=== PATIENT | female | born 1995 | race Caucasian/White ===

== ENCOUNTER 2021-03-23 23:14 | Emergency (ER) | payer OTHER ==
[~2021-03-23] VITALS: Ht 157.5 cm; Wt 54.4 kg
[2021-03-23] MEDS ORDERED: IBUPROFEN 600 MG (MOTRIN) TAB PO STA (23:39)
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
[2021-03-24] MEDS ORDERED: TRM50T PO (00:29)
[2021-03-24] MEDS ORDERED: IBUP-1780 PO (00:29)
[2021-03-24 00:45] VITALS: BP 131/70
--- NOTE | 2021-03-24 07:57 | Diagnostic Imaging Report ---
CLINICAL INDICATION: Patient with right elbow pain after falling off an electric skateboard. Patient has pain from elbow the tip of ring finger on right side. EXAMS: 1: X-ray of the right hand, 4 views. 2: X-ray of the right forearm, 2 views. 3: X-ray of the right elbow, 3 views. COMPARISON: None. FINDINGS: X-ray of the right hand, x-rays of the right forearm, and x-ray of the right elbow show no acute fracture or dislocation. There is no elbow effusion. There is no significant bone or joint abnormality. The right carpal bones are unremarkable and are intact. IMPRESSION: X-rays of the right hand, right forearm, and right elbow show no acute fracture or dislocation. Dictated by: Dictated on workstation # [id number]
== END 2021-03-24 00:45 | disposition home or self-care (01) ==
LOC: ER FS 23:15
DX: S50.01XA Contusion of right elbow, initial encounter (principal); M79.641 Pain in right hand; F17.210 Nicotine dependence, cigarettes, uncomplicated; V00.131A Fall from skateboard, initial encounter
CPT/HCPCS: 73080; 73090; 73130; 99283; A4565

== ENCOUNTER 2022-05-14 15:12 | Emergency (ER) | payer OTHER ==
[~2022-05-14] VITALS: Ht 154.9 cm; Wt 54.4 kg
[~2022-05-14 15:12] MED LIST: IBUP-1780 PO; TRM50T PO
[2022-05-14] MEDS ORDERED: fentaNYL INJ 100 MCG/2 ML AMP ONE (15:17)
[2022-05-14] MEDS ORDERED: HYDROmorphone 2 MG/ML VIAL (DILAUDID) ONE (15:23)
[2022-05-14] MEDS ORDERED: NS IV 1000 ML 1,000 ML IV SCH (15:30)
[2022-05-14] MEDS ORDERED: TETANUS,DIPTH,PERTUSS P/F (BOOSTRIX) 0.5 ML VIAL IM ONE (15:30)
[2022-05-14] MEDS ORDERED: ONDANSETRON 4 MG/2 ML (SDV) Z0FRAN IVP ONE (15:30)
[2022-05-14] MEDS ORDERED: fentaNYL INJ 100 MCG/2 ML AMP IVP ONE (15:30)
[2022-05-14] MEDS ORDERED: HYDROmorphone 2 MG/ML VIAL (DILAUDID) IV ONE ×2 (15:30→15:45)
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
[2022-05-14 15:32] LABS: HEMATOCRIT 38 % (35-52); HEMOGLOBIN 12.8 g/dL (11.5-16.0); MEAN CORPUSCULAR HEMOGLOBIN 30 pg (25-34); MEAN CORPUSCULAR HGB CONC 34 g/dL (32-36); MEAN CORPUSCULAR VOLUME 91 fL (80-99); MEAN PLATELET VOLUME 9.3 fL (9.0-12.2); PLATELET COUNT 468 10^3/uL (130-400); WHITE BLOOD COUNT 10.8 10^3/uL (4.3-11.0)
[2022-05-14 15:33] LABS: BASOPHILS % (AUTO) 1 % (0-10); EOSINOPHILS % (AUTO) 2 % (0-10); LYMPHOCYTES # (AUTO) 3.9 X 10^3 (1.0-4.0); LYMPHOCYTES % (AUTO) 36 % (12-44); MONOCYTES # (AUTO) 1.1 X 10^3 (0.0-1.0); MONOCYTES % (AUTO) 10 % (0-12); NEUTROPHILS # (AUTO) 5.5 X 10^3 (1.8-7.8); NEUTROPHILS % (AUTO) 51 % (42-75)
[2022-05-14 15:34] LABS: BASOPHILS # (AUTO) 0.1 10^3/uL (0.0-0.1); EOSINOPHILS # (AUTO) 0.3 10^3/uL (0.0-0.3)
--- NOTE | 2022-05-14 15:57 | Diagnostic Imaging Report ---
EXAM: FEMUR 2 VIEW LEFT INDICATION: Left lower extremity laceration. COMPARISON: None. FINDINGS: Soft tissue laceration in the popliteal fossa. No radiopaque foreign bodies. No fractures. IMPRESSION: No acute osseous findings in the left femur. Dictated by: Dictated on workstation # [id number]
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
[2022-05-14] MEDS ORDERED: ACHD5005 PO (17:06)
[2022-05-14] MEDS ORDERED: CEPH500T PO (17:06)
[2022-05-14] MEDS ORDERED: HYDROcodone/APAP 5 MG/325 MG (LORTAB) TAB PO ONE (17:15)
[2022-05-14 17:25] VITALS: BP 126/73
== END 2022-05-14 17:26 | disposition home or self-care (01) ==
LOC: EDUNIT# 15:12 → ER FS 15:13
DX: S81.812A Laceration without foreign body, left lower leg, initial encounter (principal); S71.132A Puncture wound without foreign body, left thigh, initial encounter; S80.811A Abrasion, right lower leg, initial encounter; F17.210 Nicotine dependence, cigarettes, uncomplicated; Z23 Encounter for immunization; Z28.310 Unvaccinated for COVID-19; V29.9XXA Motorcycle rider (driver) (passenger) injured in unspecified traffic accident, initial encounter
CPT/HCPCS: 36415; 73552; 73590; 84703; 85025; A6223; L1830; 90715

== ENCOUNTER 2022-05-26 14:22 | Emergency (ER) | payer OTHER ==
[~2022-05-26] VITALS: Ht 154.9 cm; Wt 54.4 kg
[~2022-05-26 14:22] MED LIST changes: +ACHD5005 PO; +CEPH500T PO
[2022-05-26 14:50] VITALS: BP 126/70
== END 2022-05-26 14:50 | disposition home or self-care (01) ==
LOC: EDUNIT# 14:22 → ER FS 14:23
DX: Z48.02 Encounter for removal of sutures (principal); Z28.310 Unvaccinated for COVID-19

== ENCOUNTER → 2023-05-04 | Outpatient (CLI) | payer OTHER | LOC: LABNPT 06:52 | PROVIDERS: ATTEND Family Medicine | DX: Z01.89 Encounter for other specified special examinations (principal); B95.1 Streptococcus, group B, as the cause of diseases classified elsewhere | CPT/HCPCS: 87081 ==

== ENCOUNTER 2023-05-29 05:59 | Inpatient (IN) | payer OTHER, MEDICAID ==
[~2023-05-29] VITALS: Ht 154.9 cm; Wt 62.8 kg
[2023-05-29] VITALS (78 sets, daily range): BP systolic 63–126; BP diastolic 32–75
[2023-05-29 06:57] LABS: BASOPHILS % (AUTO) 0 % (0-10); EOSINOPHILS # (AUTO) 0.6 10^3/uL (0.0-0.3); EOSINOPHILS % (AUTO) 5 % (0-10); HEMATOCRIT 38 % (35-52); HEMOGLOBIN 13.2 g/dL (11.5-16.0); LYMPHOCYTES # (AUTO) 3.3 10^3/uL (1.0-4.0); LYMPHOCYTES % (AUTO) 29 % (12-44); MEAN CORPUSCULAR HEMOGLOBIN 31 pg (25-34); MEAN CORPUSCULAR HGB CONC 35 g/dL (32-36); MEAN CORPUSCULAR VOLUME 90 fL (80-99); MEAN PLATELET VOLUME 10.5 fL (9.0-12.2); MONOCYTES # (AUTO) 1.1 10^3/uL (0.0-1.0); MONOCYTES % (AUTO) 10 % (0-12); NEUTROPHILS # (AUTO) 6.2 10^3/uL (1.8-7.8); NEUTROPHILS % (AUTO) 55 % (42-75); PLATELET COUNT 360 10^3/uL (130-400); WHITE BLOOD COUNT 11.4 10^3/uL (4.3-11.0)
[2023-05-29] MEDS: D5 LR IV SOLUTION 1,000 ML IV SCH ×2 (07:14→14:35)
[2023-05-29] MEDS ORDERED: PREN-37 PO (07:23)
[2023-05-29] MEDS ORDERED: OXYTOCIN PRE-MIX DRIP 500 ML IV SCH ×3 (08:00→18:30)
[2023-05-29] MEDS ORDERED: fentaNYL 2 mcg/ml BUPIVA 0.125 100 ML ONE (08:04)
[2023-05-29] MEDS ORDERED: LACTATED RINGERS 1,000 ML IV ONE ×2 (08:05→08:30)
--- NOTE | 2023-05-29 08:08 | History & Physical-OB ---
OB - Chief Complaint & HPI Date/Time Date of Admission: Date of Admission: May 29, 2023 at 05:59 Date seen by a Provider: May 29, 2023 Time Seen by a Provider: 07:45 Chief Complaint/History OB-Reason for Admission/Chief: Induction of Labor Hx : 1 Hx Para: 0 Expected Date of Delivery: May 30, 2023 Gestational Age in Weeks: 39 Gestational Age in Days: 6 Admission Nurse Assessment Rev: Yes History of Labs O pos Antibody neg RI RPR NR HBsAg NR HIV NR GC neg GBS neg Allergies and Home Medications Allergies Coded Allergies: No Known Drug Allergies (Unverified , 03/23/21) Patient Home Medication List Home Medication List Reviewed: Yes Vit/Iron Fumarate/FA ( Tablet) 27 Mg Iron-800 Mcg Tablet, 1 EACH PO DAILY, (Reported) Entered as Reported by: MARC BIRMINGHAM on 05/29/23722 Last Action: New Order Discontinued Medications Cephalexin (Cephalexin) 500 Mg Tablet, 500 MG PO TID Discontinued Reason: No Longer Taking Prescribed by: TERRI TOMPKINS on 05/14/221705 Last Action: Discontinued Hydrocodone/Acetaminophen (Hydrocodone-Acetamin 5-325 mg) 5 Mg-325 Mg Tablet, 1 TAB PO Q6H PRN for PAIN-MODERATE (5-7) Discontinued Reason: No Longer Taking Prescribed by: TERRI TOMPKINS on 05/14/221705 Last Action: Discontinued Ibuprofen (Ibuprofen) 800 Mg Tablet, 800 MG PO Q8H PRN for PAIN Discontinued Reason: No Longer Taking Prescribed by: LORE HAMM on 03/24/21 0029 Last Action: Discontinued Tramadol HCl (Tramadol HCl) 50 Mg Tablet, 50 MG PO Q6H PRN for PAIN Discontinued Reason: No Longer Taking Prescribed by: LORE Liu ENYART on 03/24/21 0030 Last Action: Discontinued Tramadol HCl (Tramadol HCl) 50 Mg Tablet, 50 MG PO Q6H PRN for PAIN Discontinued Reason: No Longer Taking Prescribed by: JOSEPH TERRY on 05/21/221711 Last Action: Discontinued OB - History Hx of Present Care: Yes Ultrasounds: Normal mid trimester US Obstetrical Complications: None Medical Complications: None Patient Past Medical History nc Social History/Family History 2nd Hand Smoke Exposure: Yes Immunizations First/Initial COVID19 Vaccine: Not currently vaccinated OB - Admission Exam Physical Exam Vitals: Vital Signs 05/29/23 07:16 Temp 36.5 Pulse 81 Resp 18 Pulse Ox 100 O2 Delivery Room Air HEENT: NCAT Heart: Rhythm Normal Lungs: Clear Abdomen: Gravid Extremities: Normal Reflexes: Normal Cervical Dilatation: 2cm Effacement: 75% Station: -1 Membranes: Intact Heart Rate: 130's Accelerations: Accelerations Present Decelerations: No Decelerations Short Term Variability: Present Senior Care Variability: Average (6-25) Contractions on Admission: 6-10 Minutes Apart Intensity: Mild English Scoring Tool (Modified) Dilation (cm): 1-2cm (1) Effacement (%): 51-79% (2) Descent/Station: -1,0 (2) Cervix Consistency: Soft (2) Cervix Position: Anterior (2) Subtract 1 point for: Nulliparity (-1) English Score: 8 Labs Laboratory Tests Test 05/29/23 06:53 Range/Units White Blood Count 11.4 H 4.3-11.0 10^3/uL Red Blood Count 4.26 3.80-5.11 10^6/uL Hemoglobin 13.2 11.5-16.0 g/dL Hematocrit 38 35-52 % Mean Corpuscular Volume 90 80-99 fL Mean Corpuscular Hemoglobin 31 25-34 pg Mean Corpuscular Hemoglobin Concent 35 32-36 g/dL Red Cell Distribution Width 12.9 10.0-14.5 % Platelet Count 360 130-400 10^3/uL Mean Platelet Volume 10.5 9.0-12.2 fL Immature Granulocyte % (Auto) 1 % Neutrophils (%) (Auto) 55 42-75 % Lymphocytes (%) (Auto) 29 12-44 % Monocytes (%) (Auto) 10 0-12 % Eosinophils (%) (Auto) 5 0-10 % Basophils (%) (Auto) 0 0-10 % Neutrophils # (Auto) 6.2 1.8-7.8 10^3/uL Lymphocytes # (Auto) 3.3 1.0-4.0 10^3/uL Monocytes # (Auto) 1.1 H 0.0-1.0 10^3/uL Eosinophils # (Auto) 0.6 H 0.0-0.3 10^3/uL Basophils # (Auto) 0.0 0.0-0.1 10^3/uL Immature Granulocyte # (Auto) 0.1 0.0-0.1 10^3/uL Syphilis Total Antibody Negative Negative OB - Assessment/Plan/Diagnosis Assessment Assessment: induction of labor Admission Dx 27 yo @ 39.6 GBS neg Admission Status: Inpatient Order (span 2 midnights) Reason for Inpatient Admission: IOL at 39 weeks Plan Plan: Induction Induction Method: DONNA BELL DO May 29, 2023 08:07
[2023-05-29] MEDS ORDERED: diphenhydrAMINE 50 MG/ML INJ (BENADRYL) IV PRN (08:30)
[2023-05-29] MEDS ORDERED: NALOXONE 0.4 MG/ML 1 ML (NARCAN) VIAL IV PRN ×2 (08:30→18:30)
[2023-05-29] MEDS ORDERED: ONDANSETRON 4 MG/2 ML (SDV) Z0FRAN IV PRN (08:30)
[2023-05-29] MEDS ORDERED: CATHETER FLUSH 10 ML SYR IV PRN (08:30)
[2023-05-29] MEDS ORDERED: BUPIVACAINE 0.25% 10 ML (SENSORCAINE) VIAL ONE (08:35)
[2023-05-29] MEDS ORDERED: fentaNYL INJ 100 MCG/2 ML AMP ONE (08:35)
[2023-05-29] MEDS: fentaNYL 2 mcg/ml BUPIVA 0.125 100 ML EPI SCH ×2 (08:58→17:25)
[2023-05-29] MEDS: CATHETER FLUSH 10 ML SYR IV SCH ×2 (14:00→22:00)
[2023-05-29] MEDS ORDERED: LIDOCAINE/EPI 2% 1:200,00 (XYLOCAINE) 20 ML VIAL INJ PRN (16:00)
[2023-05-29] MEDS ORDERED: BENZOCAINE/MENTHOL (DERMOPLAST) 56 ML CAN TP PRN (18:30)
[2023-05-29] MEDS ORDERED: DIBUCAINE 1% OINTMENT 28 GM TUBE TOP PRN (18:30)
[2023-05-29] MEDS ORDERED: WITCH HAZEL(TUCKS) 40 EA JAR TOP PRN (18:30)
[2023-05-29] MEDS ORDERED: MEASLES,MUMPS,RUBELLA 1 EA INJ SQ ONE (18:30)
[2023-05-29] MEDS ORDERED: TETANUS,DIPTH,PERTUSS P/F (BOOSTRIX) 0.5 ML VIAL IM ONE (18:30)
--- NOTE | 2023-05-29 18:36 | OB Labor & Delivery Record ---
Vag Delivery Note Vag Delivery Note Date of Delivery: 05/29/23 Preoperative Diagnosis: Michelle Garcia is a (27 /Para 1 / 0,Gestational Age (wks)39with [ ] Postoperative Diagnosis: Same Surgeon: LUIS MIGUEL CORONEL Porcelain [place]axer: [] Anesthesia: epidural Delivery Type: Spontaneous vaginal delivery Findings: [] Liveborn male infant, apgars 9/9, weight 2810g (6#3oz) Lacerations: First-degree perineal, left vaginal wall Intact placenta with 3 vessel cord. No nuchal cord, body cord or shoulder d ystocia Estimated Blood Loss: 200 ml Complications: None Condition: Stable Description of Procedure: The patient is a 27 year old female who presented at 39 weeks for induction of labor. She was admitted and informed consent was obtained. Her labor course was Noneventful. She progressed to complete dilatation and began to push. Patient was complete and pushed for approximately 10 minutes to deliver the head in an TIFFANI position. The anterior shoulder (left) delivered followed by the posterior shoulder and the rest the . The was placed on the maternal abdomen and after 60 seconds of delayed cord clamping the cord was clamped and then cut. The placenta delivered spontaneously intact with three-vessel cord. The cervix, vagina, periurethral and perineal areas were all inspected. There was a first-degree perineal laceration and a left vaginal wall laceration which was repaired in usual fashion using 3-0 repeat.The uterus was massaged and was noted to be firm. The quantitative blood loss was 200 cc. The mother and tolerated the procedure well and a recovering in the room in stable condition. All my counts were correct x2. Vitals - Labs Vital Signs - I&O Vital Signs Date Time Temp Pulse Resp B/P (MAP) Pulse Ox O2 Delivery O2 Flow Rate FiO2 05/29/23 17:25 36.0 05/29/23 17:07 80 111/56 (74) 100 Room Air 05/29/23 17:02 87 98 Room Air 05/29/23 16:57 89 98 Room Air 05/29/23 16:52 90 112/54 (73) 100 Room Air 05/29/23 16:47 82 98 Room Air 05/29/23 16:42 75 100 Room Air 05/29/23 16:37 70 110/59 (76) 100 Room Air 05/29/23 16:32 82 100 Room Air 05/29/23 16:27 71 100 Room Air 05/29/23 16:22 65 106/59 (75) 99 Room Air 05/29/23 16:17 67 100 Room Air 05/29/23 16:12 71 99 Room Air 05/29/23 16:07 72 112/57 (75) 98 Room Air 05/29/23 16:02 73 99 Room Air 05/29/23 15:57 64 100 Room Air 05/29/23 15:52 73 106/57 (73) 99 Room Air 05/29/23 15:47 72 100 Room Air 05/29/23 15:42 75 98 Room Air 05/29/23 15:37 69 109/62 (78) 100 Room Air 05/29/23 15:32 72 99 Room Air 05/29/23 15:27 68 100 Room Air 05/29/23 15:22 69 102/56 (71) 99 Room Air 05/29/23 15:17 66 100 Room Air 05/29/23 15:12 64 98 Room Air 05/29/23 15:07 81 96/58 (71) 100 Room Air 05/29/23 15:02 70 100 Room Air 05/29/23 14:57 68 98 Room Air 05/29/23 14:52 73 98/61 (73) 100 Room Air 05/29/23 14:47 73 100 Room Air 05/29/23 14:42 61 100 Room Air 05/29/23 14:37 83 107/58 (74) 98 Room Air 05/29/23 14:32 72 98 Room Air 05/29/23 14:27 82 100 Room Air 05/29/23 14:22 88 99/57 (71) 100 Room Air 05/29/23 14:17 80 100 Room Air 05/29/23 14:12 83 100 Room Air 05/29/23 14:07 84 96/58 (71) 100 Room Air 05/29/23 14:02 88 100 Room Air 05/29/23 13:57 82 100 Room Air 05/29/23 13:52 81 99 Room Air 05/29/23 13:47 75 100 Room Air 05/29/23 13:42 85 100 Room Air 05/29/23 13:37 76 97/55 (69) 100 Room Air 05/29/23 13:32 69 99 Room Air 7/19/23 13:27 70 99 Room Air 05/29/23 13:22 76 96/55 (69) 100 Room Air 05/29/23 13:17 81 100 Room Air 05/29/23 13:12 80 100 Room Air 05/29/23 13:07 85 91/52 (65) 100 Room Air 05/29/23 13:02 69 98 Room Air 05/29/23 12:57 90 99 Room Air 05/29/23 12:52 88 97/55 (69) 100 Room Air 05/29/23 12:47 89 100 Room Air 05/29/23 12:42 78 100 Room Air 05/29/23 12:37 81 101/50 (67) 100 Room Air 05/29/23 12:32 83 100 Room Air 05/29/23 12:27 78 100 Room Air 05/29/23 12:22 70 110/59 (76) 100 Room Air 05/29/23 12:17 82 100 Room Air 05/29/23 12:12 82 100 Room Air 05/29/23 12:07 82 100/49 (66) 100 Room Air 05/29/23 12:02 71 100 Room Air 05/29/23 11:57 69 98 Room Air 05/29/23 11:52 69 106/61 (76) 99 Room Air 05/29/23 11:47 83 100 Room Air 05/29/23 11:42 89 100 Room Air 05/29/23 11:37 72 108/59 (75) 99 Room Air 05/29/23 11:32 64 100 Room Air 05/29/23 11:27 79 100 Room Air 05/29/23 11:22 66 115/59 (77) 100 Room Air 05/29/23 11:17 81 100 Room Air 05/29/23 11:12 78 100 Room Air 05/29/23 11:07 89 89/51 (64) 100 Room Air 05/29/23 11:02 83 100 Room Air 05/29/23 10:57 98 100 Room Air 05/29/23 10:50 75 116/58 (77) 100 Room Air 05/29/23 10:47 90 105/58 (74) 100 Room Air 05/29/23 10:44 92 102/50 (67) 05/29/23 10:41 83 112/55 (74) 100 Room Air 05/29/23 10:38 79 106/57 (73) 100 Room Air 05/29/23 10:35 90 99/48 (65) 94 Room Air 05/29/23 10:32 85 118/53 (74) 100 Room Air 05/29/23 10:29 85 112/58 (76) 05/29/23 10:26 91 114/56 (75) 100 Room Air 05/29/23 10:23 90 110/56 (74) 100 Room Air 05/29/23 10:20 73 118/59 (78) 05/29/23 10:17 83 120/58 (78) 100 Room Air 05/29/23 10:14 82 100/55 (70) 05/29/23 10:11 73 122/64 (83) 100 Room Air 05/29/23 10:08 65 117/72 (87) 100 Room Air 05/29/23 10:05 89 112/66 (81) 05/29/23 10:02 105 116/63 (80) 100 Room Air 05/29/23 09:59 89 110/55 (73) 05/29/23 09:56 68 122/64 (83) 100 Room Air 05/29/23 09:53 86 122/58 (79) 99 Room Air 05/29/23 09:50 107 119/56 (77) 05/29/23 09:47 100 107/52 (70) 100 Room Air 05/29/23 09:44 103 103/75 (84) 05/29/23 09:41 96 98/57 (71) 97 Room Air 05/29/23 09:38 95 96/52 (67) 100 Room Air 05/29/23 09:35 72 80/46 (57) 05/29/23 09:32 68 90/54 (66) 97 Room Air 05/29/23 09:29 68 73/43 (53) 05/29/23 09:26 74 63/33 (43) 99 Room Air 05/29/23 09:23 90 98/63 (75) 100 Room Air 05/29/23 09:20 100 69/32 (44) 05/29/23 09:17 100 112/52 (72) 99 Room Air 05/29/23 09:12 72 99 Room Air 05/29/23 09:09 65 100 Room Air 05/29/23 09:08 70 112/60 (77) 98 Room Air 05/29/23 09:06 90 88/45 (59) 05/29/23 09:03 96 101/59 (73) 100 Room Air 05/29/23 08:56 106 104/55 (71) 05/29/23 08:53 95 107/58 (74) 05/29/23 08:50 95 111/62 (78) 100 Room Air 05/29/23 08:47 85 126/70 (88) 100 Room Air 05/29/23 08:44 85 108/58 (75) 05/29/23 08:41 85 99 Room Air 05/29/23 08:36 76 97 Room Air 05/29/23 08:31 75 98 Room Air 05/29/23 08:26 70 100 Room Air 05/29/23 08:21 75 100 Room Air 05/29/23 08:16 65 100 Room Air 05/29/23 08:11 69 100 Room Air 05/29/23 08:06 74 100 Room Air 05/29/23 08:01 89 100 Room Air 05/29/23 07:56 90 100 Room Air 05/29/23 07:51 100 Room Air 05/29/23 07:46 75 100 Room Air 05/29/23 07:41 72 99 Room Air 05/29/23 07:36 68 99 Room Air 05/29/23 07:31 69 100 Room Air 05/29/23 07:26 72 100 Room Air 05/29/23 07:21 83 100 Room Air 05/29/23 07:18 75 102/55 (71) 05/29/23 07:16 76 100 Room Air 05/29/23 07:16 36.5 81 18 100 Room Air 05/29/23 07:11 61 100 Room Air 05/29/23 07:06 72 100 Non Rebreather 05/29/23 07:01 80 100 Non Rebreather 05/29/23 06:56 77 100 Non Rebreather 05/29/23 06:51 79 100 Non Rebreather 05/29/23 06:46 79 100 Non Rebreather 05/29/23 06:41 64 98 Non Rebreather 05/29/23 06:20 122 98 Non Rebreather 05/29/23 06:20 36.7 123 20 98 Room Air Labs Laboratory Tests 05/29/23 06:53: White Blood Count 11.4H, Red Blood Count 4.26, Hemoglobin 13.2, Hematocrit 38, Mean Corpuscular Volume 90, Mean Corpuscular Hemoglobin 31, Mean Corpuscular Hemoglobin Concent 35, Red Cell Distribution Width 12.9, Platelet Count 360, Mean Platelet Volume 10.5, Immature Granulocyte % (Auto) 1, Neutrophils (%) (Auto) 55, Lymphocytes (%) (Auto) 29, Monocytes (%) (Auto) 10, Eosinophils (%) (Auto) 5, Basophils (%) (Auto) 0, Neutrophils # (Auto) 6.2, Lymphocytes # (Auto) 3.3, Monocytes # (Auto) 1.1H, Eosinophils # (Auto) 0.6H, Basophils # (Auto) 0.0, Immature Granulocyte # (Auto) 0.1, Syphilis Total Antibody Negative LUIS MIGUEL CORONEL DO May 29, 2023 18:36
[2023-05-29] MEDS ORDERED: DOCU-143 PO (18:39)
[2023-05-29] MEDS ORDERED: IBUP-1773 PO (18:39)
[2023-05-29] MEDS: ACETAMINOPHEN 500 MG TAB (TYLENOL) PO SCH (19:14)
[2023-05-29] MEDS: IBUPROFEN 800 MG (MOTRIN) TAB PO SCH (19:14)
[2023-05-29] MEDS ORDERED: CATHETER FLUSH 10 ML SYR IV SCH (22:00)
[2023-05-30 01:30] VITALS: BP 93/55
[2023-05-30] MEDS: ACETAMINOPHEN 500 MG TAB (TYLENOL) PO SCH ×3 (01:33→14:30)
[2023-05-30] MEDS: DOCUSATE SODIUM 100 MG (COLACE) CAP PO SCH ×2 (01:46→08:11)
[2023-05-30] MEDS: D5 LR IV SOLUTION 1,000 ML IV SCH (01:54)
[2023-05-30 04:27] VITALS: BP 97/59
[2023-05-30] MEDS: IBUPROFEN 800 MG (MOTRIN) TAB PO SCH ×2 (04:27→13:11)
[2023-05-30 05:48] LABS: BASOPHILS % (AUTO) 0 % (0-10); EOSINOPHILS # (AUTO) 0.3 10^3/uL (0.0-0.3); EOSINOPHILS % (AUTO) 3 % (0-10); HEMATOCRIT 34 % (35-52); HEMOGLOBIN 11.8 g/dL (11.5-16.0); LYMPHOCYTES % (AUTO) 18 % (12-44); MEAN CORPUSCULAR HEMOGLOBIN 31 pg (25-34); MEAN CORPUSCULAR HGB CONC 35 g/dL (32-36); MEAN CORPUSCULAR VOLUME 90 fL (80-99); MEAN PLATELET VOLUME 10.7 fL (9.0-12.2); MONOCYTES # (AUTO) 0.9 10^3/uL (0.0-1.0); MONOCYTES % (AUTO) 8 % (0-12); NEUTROPHILS # (AUTO) 7.7 10^3/uL (1.8-7.8); NEUTROPHILS % (AUTO) 70 % (42-75); PLATELET COUNT 245 10^3/uL (130-400); WHITE BLOOD COUNT 11.1 10^3/uL (4.3-11.0)
[2023-05-30] MEDS ORDERED: PRENATAL VITAMIN 1 EA TAB PO SCH (07:00)
--- NOTE | 2023-05-30 07:21 | Postpartum Progress Note ---
Note Note Day # 1 Subjective: Patient is without complaints. Ambulating, voiding. Tolerating a regular diet without nausea or vomiting. Normal lochia. Pain is well controlled with oral pain medications. Objective: Physical Exam: General - Alert and oriented, no apparent distress Abdomen - Soft, appropriately tender to palpation, non-distended, fundus firm at umbilicus Extremities - no edema, negative [place]'s bilaterally Assessment: PPD 1 NVD Plan: Routine care. Encourage breast feeding. Encourage ambulation. Ferrous sulfate supplementation. Plan for discharge tomorrow Vitals - Labs Vital Signs - I&O Vital Signs Date Time Temp Pulse Resp B/P (MAP) Pulse Ox O2 Delivery O2 Flow Rate FiO2 05/30/23 04:27 36.6 77 18 97/59 (72) 99 Room Air 05/30/23 01:30 36.5 81 18 93/55 (68) 97 Room Air 05/29/23 21:30 36.7 70 18 99/54 (69) Room Air 05/29/23 20:36 81 18 105/57 (73) Room Air 05/29/23 20:21 36.5 72 18 96/55 (69) Room Air 05/29/23 20:06 75 18 91/51 (64) Room Air 05/29/23 19:51 36.6 79 18 88/51 (63) Room Air 05/29/23 19:36 76 105/57 (73) 05/29/23 19:21 77 107/54 (71) 05/29/23 19:14 36.0 05/29/23 19:14 36.0 05/29/23 18:55 83 92 Room Air 05/29/23 18:54 82 98 Room Air 05/29/23 18:49 75 100 Room Air 05/29/23 18:44 80 99 Room Air 05/29/23 18:43 96 88 Room Air 05/29/23 18:38 107 100 Room Air 05/29/23 18:34 76 117/56 (76) 05/29/23 18:33 36.0 71 100 Room Air 05/29/23 18:04 125 100 Room Air 05/29/23 18:02 101 97 Room Air 05/29/23 17:57 74 100 Room Air 05/29/23 17:52 82 110/72 (85) 100 Room Air 05/29/23 17:47 75 91 Room Air 05/29/23 17:42 82 99 Room Air 05/29/23 17:37 74 113/66 (82) 91 Room Air 05/29/23 17:32 83 99 Room Air 05/29/23 17:27 36.0 70 18 100 Room Air 05/29/23 17:25 36.0 05/29/23 17:22 77 115/70 (85) 100 Room Air 05/29/23 17:17 69 100 Room Air 05/29/23 17:12 82 100 Room Air 05/29/23 17:07 80 111/56 (74) 100 Room Air 05/29/23 17:02 87 98 Room Air 05/29/23 16:57 89 98 Room Air 05/29/23 16:52 90 112/54 (73) 100 Room Air 05/29/23 16:47 82 98 Room Air 05/29/23 16:42 75 100 Room Air 05/29/23 16:37 70 110/59 (76) 100 Room Air 05/29/23 16:32 82 100 Room Air 05/29/23 16:27 71 100 Room Air 05/29/23 16:22 65 106/59 (75) 99 Room Air 05/29/23 16:17 67 100 Room Air 05/29/23 16:12 71 99 Room Air 05/29/23 16:07 72 112/57 (75) 98 Room Air 05/29/23 16:02 73 99 Room Air 05/29/23 15:57 64 100 Room Air 05/29/23 15:52 73 106/57 (73) 99 Room Air 05/29/23 15:47 72 100 Room Air 05/29/23 15:42 75 98 Room Air 05/29/23 15:37 69 109/62 (78) 100 Room Air 05/29/23 15:32 72 99 Room Air 05/29/23 15:27 68 100 Room Air 05/29/23 15:22 69 102/56 (71) 99 Room Air 05/29/23 15:17 66 100 Room Air 05/29/23 15:12 64 98 Room Air 05/29/23 15:07 81 96/58 (71) 100 Room Air 05/29/23 15:02 70 100 Room Air 05/29/23 14:57 68 98 Room Air 05/29/23 14:52 73 98/61 (73) 100 Room Air 05/29/23 14:47 73 100 Room Air 05/29/23 14:42 61 100 Room Air 05/29/23 14:37 83 107/58 (74) 98 Room Air 05/29/23 14:32 72 98 Room Air 05/29/23 14:27 82 100 Room Air 05/29/23 14:22 88 99/57 (71) 100 Room Air 05/29/23 14:17 80 100 Room Air 05/29/23 14:12 83 100 Room Air 05/29/23 14:07 84 96/58 (71) 100 Room Air 05/29/23 14:02 88 100 Room Air 05/29/23 13:57 82 100 Room Air 05/29/23 13:52 81 99 Room Air 05/29/23 13:47 75 100 Room Air 05/29/23 13:42 85 100 Room Air 05/29/23 13:37 76 97/55 (69) 100 Room Air 05/29/23 13:32 69 99 Room Air 05/29/23 13:27 70 99 Room Air 05/29/23 13:22 76 96/55 (69) 100 Room Air 05/29/23 13:17 81 100 Room Air 05/29/23 13:12 80 100 Room Air 05/29/23 13:07 85 91/52 (65) 100 Room Air 05/29/23 13:02 69 98 Room Air 05/29/23 12:57 90 99 Room Air 05/29/23 12:52 88 97/55 (69) 100 Room Air 05/29/23 12:47 89 100 Room Air 05/29/23 12:42 78 100 Room Air 05/29/23 12:37 81 101/50 (67) 100 Room Air 05/29/23 12:32 83 100 Room Air 05/29/23 12:27 78 100 Room Air 05/29/23 12:22 70 110/59 (76) 100 Room Air 05/29/23 12:17 82 100 Room Air 05/29/23 12:12 82 100 Room Air 05/29/23 12:07 82 100/49 (66) 100 Room Air 05/29/23 12:02 71 100 Room Air 05/29/23 11:57 69 98 Room Air 05/29/23 11:52 69 106/61 (76) 99 Room Air 05/29/23 11:47 83 100 Room Air 05/29/23 11:42 89 100 Room Air 05/29/23 11:37 72 108/59 (75) 99 Room Air 05/29/23 11:32 64 100 Room Air 05/29/23 11:27 79 100 Room Air 05/29/23 11:22 66 115/59 (77) 100 Room Air 05/29/23 11:17 81 100 Room Air 05/29/23 11:12 78 100 Room Air 05/29/23 11:07 89 89/51 (64) 100 Room Air 05/29/23 11:02 83 100 Room Air 05/29/23 10:57 98 100 Room Air 05/29/23 10:50 75 116/58 (77) 100 Room Air 05/29/23 10:47 90 105/58 (74) 100 Room Air 05/29/23 10:44 92 102/50 (67) 05/29/23 10:41 83 112/55 (74) 100 Room Air 05/29/23 10:38 79 106/57 (73) 100 Room Air 05/29/23 10:35 90 99/48 (65) 94 Room Air 05/29/23 10:32 85 118/53 (74) 100 Room Air 05/29/23 10:29 85 112/58 (76) 05/29/23 10:26 91 114/56 (75) 100 Room Air 05/29/23 10:23 90 110/56 (74) 100 Room Air 05/29/23 10:20 73 118/59 (78) 05/29/23 10:17 83 120/58 (78) 100 Room Air 05/29/23 10:14 82 100/55 (70) 05/29/23 10:11 73 122/64 (83) 100 Room Air 05/29/23 10:08 65 117/72 (87) 100 Room Air 05/29/23 10:05 89 112/66 (81) 05/29/23 10:02 105 116/63 (80) 100 Room Air 05/29/23 09:59 89 110/55 (73) 05/29/23 09:56 68 122/64 (83) 100 Room Air 05/29/23 09:53 86 122/58 (79) 99 Room Air 05/29/23 09:50 107 119/56 (77) 05/29/23 09:47 100 107/52 (70) 100 Room Air 05/29/23 09:44 103 103/75 (84) 05/29/23 09:41 96 98/57 (71) 97 Room Air 05/29/23 09:38 95 96/52 (67) 100 Room Air 05/29/23 09:35 72 80/46 (57) 05/29/23 09:32 68 90/54 (66) 97 Room Air 05/29/23 09:29 68 73/43 (53) 05/29/23 09:26 74 63/33 (43) 99 Room Air 05/29/23 09:23 90 98/63 (75) 100 Room Air 05/29/23 09:20 100 69/32 (44) 05/29/23 09:17 100 112/52 (72) 99 Room Air 05/29/23 09:12 72 99 Room Air 05/29/23 09:09 65 100 Room Air 05/29/23 09:08 70 112/60 (77) 98 Room Air 05/29/23 09:06 90 88/45 (59) 05/29/23 09:03 96 101/59 (73) 100 Room Air 05/29/23 08:58 36.0 05/29/23 08:56 106 104/55 (71) 05/29/23 08:53 95 107/58 (74) 05/29/23 08:50 95 111/62 (78) 100 Room Air 05/29/23 08:47 85 126/70 (88) 100 Room Air 05/29/23 08:44 85 108/58 (75) 05/29/23 08:41 85 99 Room Air 05/29/23 08:36 76 97 Room Air 05/29/23 08:31 75 98 Room Air 05/29/23 08:26 70 100 Room Air 05/29/23 08:21 75 100 Room Air 05/29/23 08:16 65 100 Room Air 05/29/23 08:11 69 100 Room Air 05/29/23 08:06 74 100 Room Air 05/29/23 08:01 89 100 Room Air 05/29/23 07:56 90 100 Room Air 05/29/23 07:51 100 Room Air 05/29/23 07:46 75 100 Room Air 05/29/23 07:41 72 99 Room Air 05/29/23 07:36 68 99 Room Air 05/29/23 07:31 69 100 Room Air 05/29/23 07:26 72 100 Room Air 05/29/23 07:21 83 100 Room Air I & O 05/30/23 07:00 Intake Total 3850 ml Balance 3850 ml Labs Laboratory Tests 05/30/23 05:25: White Blood Count 11.1H, Red Blood Count 3.79L, Hemoglobin 11.8, Hematocrit 34L, Mean Corpuscular Volume 90, Mean Corpuscular Hemoglobin 31, Mean Corpuscular Hemoglobin Concent 35, Red Cell Distribution Width 12.8, Platelet Count 245, Mean Platelet Volume 10.7, Immature Granulocyte % (Auto) 1, Neutrophils (%) (Auto) 70, Lymphocytes (%) (Auto) 18, Monocytes (%) (Auto) 8, Eosinophils (%) (Auto) 3, Basophils (%) (Auto) 0, Neutrophils # (Auto) 7.7, Lymphocytes # (Auto) 2.0, Monocytes # (Auto) 0.9, Eosinophils # (Auto) 0.3, Basophils # (Auto) 0.0, Immature Granulocyte # (Auto) 0.1 DONNA ZURITA DO May 30, 2023 07:21
--- NOTE | 2023-05-30 07:22 | Discharge Inst-Women's Service ---
Discharge Inst-Women's Serv Depart Medication/Instructions New, Converted or Re-Newed RX: Transmitted to Pharmacy Problems Reviewed?: Yes Consults/Follow Up Additional Follow Up: Yes Activity Activity: Activity as Tolerated Driving Instructions: No Driving for 1 Week NO SMOKING: NO SMOKING Nothing Inside Vagina: No Douching, No Agency, No Tampons Diet Discharge Diet: No Restrictions Symptoms to Report to : Bleeding Excessive, Pain Increased, Fever Over 101 Degrees F, Vaginal Bleeding Increase, Questions/Concerns For Any Problems or Questions: Contact Your Physician DONNA ZURITA DO May 30, 2023 07:22
[2023-05-30 08:12] VITALS: BP 113/58
[2023-05-30 09:00] VITALS: BP 105/57
[2023-05-30] MEDS ORDERED: DOCUSATE CALCIUM 240 MG (SURFAK) CAP PO SCH (09:00)
[2023-05-30] MEDS ORDERED: FERROUS SULF 325 MG (IRON) TAB PO SCH (09:00)
--- NOTE | 2023-05-30 12:22 | Anesthesia-Regional Post-Op ---
Regional Patient Condition Mental Status: Alert, Oriented x3 Circulation: Same as Pre-Op Headache: Absent Sensation: Full Recovery Motor Block: Absent Post Op Complications Complications None Follow Up Care/Instructions Patient Instructions None needed. Anesthesia/Patient Condition Patient is doing well, no complaints, stable vital signs, no apparent adverse anesthesia problems. No complications reported per nursing. CONNIE CAMP CRNA May 30, 2023 12:22
[2023-05-30 13:10] VITALS: BP 116/68
[2023-05-30 17:09] VITALS: BP 113/56
== END 2023-05-30 20:45 | disposition home or self-care (01) | DRG 807 ==
LOC: LDRP 05:59
PROVIDERS: ADMIT Obstetrics & Gynecology; ATTEND Obstetrics & Gynecology
PROC: 10E0XZZ Delivery of Products of Conception, External Approach (ICD-10-PCS; principal; 2023-05-29)
PROC: 10907ZC Drainage of Amniotic Fluid, Therapeutic from Products of Conception, Via Natural or Artificial Opening (ICD-10-PCS; 2023-05-29)
PROC: 0HQ9XZZ Repair Perineum Skin, External Approach (ICD-10-PCS; 2023-05-29)
DX: O70.0 First degree perineal laceration during delivery (principal); Z37.0 Single live birth; Z3A.39 39 weeks gestation of pregnancy
CPT/HCPCS: 36415; 85025; 86780; 86850; 86900; 86901